=== PATIENT | female | born 1955 | race Caucasian/White ===

== ENCOUNTER 2025-05-09 06:34 | Inpatient (IN) | payer MEDICARE, MEDICAID, SELFPAY ==
[2025-05-09] VITALS (10 sets, daily range): BP systolic 130–163; BP diastolic 80–126; PULSE 87–124; RESP 18–24; TEMP 36.1–37.4; O2SAT 89–93; BMI 37.1
--- NOTE | 2025-05-09 06:42 | PD.EDABDPN ---
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 Described as aching in sensation located most to the left side, rating as moderate. Accompanied by nausea and one episode of vomiting this morning, no diarrhea. Additionally reports some dysuria beginning several days ago. Patient reports eating cottage cheese for dinner last night and feels that may be the cause of her symptoms. Denies contact with residents experiencing similar GI symptoms. Denies fevers, chills, chest pain, cough, shortness of breath. Related Data Home Medications ?Medication ?Instructions ?Recorded ?Confirmed ascorbic acid (vitamin C) 500 mg 500 mg PO QDAY 01/13/23 01/13/23 tablet atorvastatin 20 mg tablet 20 mg PO QDAY 01/13/23 01/13/23 bisacodyl 10 mg rectal suppository 10 mg DC QDAY PRN 01/13/23 01/13/23 (Dulcolax (bisacodyl)) diphenhydramine HCl 25 mg capsule 25 mg PO QHS PRN 01/13/23 01/13/23 (Benadryl) escitalopram oxalate 10 mg tablet 10 mg PO QDAY 01/13/23 01/13/23 (Lexapro) magnesium hydroxide 2,400 mg/10 mL 10 ml PO QHS PRN 01/13/23 01/13/23 oral suspension (Milk Of Magnesia Concentrated) sodium phosphates 19 gram-7 118 ml DC QDAY PRN 01/13/23 01/13/23 gram/118 mL enema (Fleet Enema) Previous Rx's ?Medication ?Instructions ?Recorded atorvastatin 20 mg tablet 20 mg PO QPM #30 tabs 04/06/22 escitalopram oxalate 10 mg tablet 10 mg PO HS #30 tabs 12/21/22 Allergies Allergy/AdvReac Type Severity Reaction Status Date / Time No Known Allergies Allergy Verified 05/09/25 06:36 Review of Systems Review of Systems Systems Reviewed: All systems reviewed, normal except as documented Past Medical History Past Medical History NEUROLOGIC: Positive Neurological Disorders, Cerebrovascular Accident and Seizures CARDIAC: Positive Aneurysm and Hypertension REPRODUCTIVE: Positive Breast Cancer OTHER HISTORY: Positive Breast Cancer Family History FAMILY HISTORY: Positive Family Gastrointestinal Problems Surgical History SURGICAL: Positive Hysterectomy Social History SMOKING STATUS: Former smoker SUBSTANCE USE: methamphetamine ED Exam General Limitations: Present no limitations General appearance: Present alert and in no apparent distress Head Head exam: Present atraumatic, normocephalic and normal inspection Eye Eye exam: Present normal appearance, PERRL and EOMI ENT ENT exam: Present normal exam, normal oropharynx and mucous membranes moist Neck Neck exam: Present normal inspection, full ROM and trachea midline Chest Chest inspection: Present normal inspection and symmetric chest wall rise Respiratory Respiratory exam: Present normal lung sounds bilaterally Cardiovascular Cardiovascular exam: Present tachycardia and normal heart sounds Abdominal Exam Abdominal exam: Present soft, distention (mild ) and normal bowel sounds; Absent guarding or rebound Extremities Exam Extremities exam: Present other (Right sided paralysis from previous CVA ) Back Exam Back exam: Present normal inspection and full ROM Neurological Exam Neurological exam: Present alert, oriented X3, CN II-XII intact and other Psychiatric Psychiatric exam: Present normal affect and normal mood Skin Skin exam: Present warm, dry, intact and normal color Other Other exam information: Patient with weakness at her right side of her body this is chronic Course Quality Measures Current suspected stage: sepsis Possible source: genitourinary Blood cultures ordered: yes Antibiotic ordered: Yes Pertinent labs: 05/09/25 05/09/25 07:10 10:36 Lactic Acid 2.1 H mMol/L 1.9 mMol/L (0.4-2.0) (0.4-2.0) Procalcitonin 0.06 ng/ml (0.0-0.49) sepsis Orders Category Date Time Status Admit to Inpatient Status Routine Admission 05/09/25 12:25 Active Patient Condition Routine Admission 05/09/25 12:25 Ordered Bedside Blood Glucose NOW Care 05/09/25 06:51 Active Bedside Blood Glucose Q6HR Care 05/09/25 12:[address] Screening NOW Care 05/09/25 06:53 Active Heel Brusher Q4H START 00 Care 05/09/25 06:51 Active EKG (ED ONLY) *Do not use* NOW Care 05/09/25 06:44 Completed IV [Insert IV] NOW Care 05/09/25 06:42 Active In and Out Catheter X1 Care 05/09/25 08:43 Completed Insert IV NOW Care 05/09/25 06:51 Active Insert NG / OG tube NOW Care 05/09/25 11:14 Active NPO NOW Care 05/09/25 11:14 Active Notify provider NEEDED Care 05/09/25 12:25 Active Strict Intake and Output Routine Care 05/09/25 06:51 Ordered Diet NPO (NOW) Diet 05/09/25 11:[address] abdomen pelvis w con Stat Exams 05/09/25 06:53 Completed EKG (ED Only) Stat Exams 05/09/25 06:44 Ordered XR chest 1V SEPSIS PROTOCOL Stat Exams 05/09/25 06:51 Completed XR small bowel single contrast Stat Exams 05/09/25 11:15 Ordered Blood Culture (Lab) Stat Lab 05/09/25 07:10 Received CBC Stat Lab 05/09/25 07:10 Completed Comprehensive Metabolic Panel Stat Lab 05/09/25 07:10 Completed Lactate (Lactic Acid) Stat Lab 05/09/25 07:10 Completed Lactic Acid, 3 HR Stat Lab 05/09/25 10:36 Completed Lipase Stat Lab 05/09/25 07:10 Completed Partial Thromboplastin Time Stat Lab 05/09/25 07:10 Completed Procalcitonin Stat Lab 05/09/25 07:10 Completed Prothrombin Time with INR Stat Lab 05/09/25 07:10 Completed Troponin I Stat Lab 05/09/25 07:10 Completed Urinalysis Stat Lab 05/09/25 08:44 Completed Urine Culture Stat Lab 05/09/25 08:44 Received Acetaminophen Tab [Tylenol ES Tab] Med 05/09/25 06:53 Discontinued 500 mg PO X1 ONE Insulin Regular Med 05/09/25 12:25 Discontinued 10 unit IV X1 ONE Ringers Lactated 1000 ml [Lactated Ringers] 1,000 ml Med 05/09/25 09:16 Discontinued IV 999 mls/hr Ringers Lactated 1000 ml [Lactated Ringers] 500 ml Med 05/09/25 09:00 Discontinued IV 500 mls/hr Ringers Lactated 1000 ml [Lactated Ringers] 500 ml Med 05/09/25 09:16 Discontinued IV 500 mls/hr Ringers Lactated 500 ml [Lactated Ringers] 500 ml Med 05/09/25 09:14 Discontinued IV 1,000 mls/hr Ringers Lactated 500 ml [Lactated Ringers] 500 ml Med 05/09/25 06:51 Discontinued IV 500 mls/hr cefTRIAXone/D5w 1gm IV premix [Rocephin/D5w 1gm IV Med 05/09/25 06:52 Discontinued premix] 1 gm in 50 ml IV NOW Code Status Routine Oth 05/09/25 12:25 Ordered Vital Signs Vital signs: Vital Signs Temperature 98.6 F 05/09/25 06:40 Pulse Rate 119 H 05/09/25 06:40 Respiratory Rate 24 H 05/09/25 06:40 Blood Pressure 157/126 H 05/09/25 06:40 Pulse Oximetry (%) 89 L 05/09/25 06:40 Oxygen Delivery Method Room Air 05/09/25 06:40 Abdominal Pain MDM MDM Narrative MDM Narrative:: Kary Wiggins am scribing for and in the presence of Dr. Gaspar. Patient is a 69-year-old female with medical history notable for stroke with residual right-sided deficits, gastric cancer status post resection many years ago that send emergency room with concerns for acute onset nausea vomiting and abdominal pain. Vital signs and exam as listed. Ordered labs, CT. Patient presented tachycardia. Ordered sepsis order set. Labs without acute hematologic or significant electrolyte abnormality patient is hyperglycemic however not in DKA. He has a urinary tract infection. Following fluid resuscitation lactic acid resolved to normal. CT scan shows findings concerning for bowel obstruction. Ordered NG tube, Place patient NPO. Discussed case with surgeon who recommends admission Gastrografin study and admission for observation. Discussed case with hospitalist, for admission. 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, DVT in right leg, hypertension, hyperlipidemia, stomach cancer s/p resection How is presenting disease/condition affected by chronic disease/condition?: exacerbated by Evaluation data The following diagnostics were reviewed and interpreted by me:: lab results, radiology exam(s) and EKG tracing(s) (Sinus tachycardia, rate 120, normal intervals, motion artifact, nonspecific T-wave changes, no cardiac alert ) Lab and/or radiology exams considered but not ordered:: None Interpretation Summary: Ordering Physician: Saumya Gaspar MD Date of Service: 05/09/25 Procedure(s): XR chest 1V SEPSIS PROTOCOL Accession Number(s): [id number] cc: Víctor Reddy MD; Saumya Gaspar MD~ Examination: AP chest single view Technique one AP portable upright chest single view Date and time: May 09, 2025 0708 hours INDICATIONS: Fever shortness of breath sepsis today FINDINGS: Normal heart size. No pneumonia or pulmonary edema. The osseous structures are intact. IMPRESSION: No active disease Dictated By: Víctro Reddy MD Signed By: <Electronically signed by Víctor Reddy MD in OV> 05/09/25 0752 Ordering Physician: Saumya Gaspar MD Date of Service: 05/09/25 Procedure(s): CT abdomen pelvis w con Accession Number(s): [id number] cc: Víctor Reddy MD; NO PRIMARY/FAMILY,PHYSICIAN; Saumya Gaspar MD~ Examination: CT abdomen with intravenous contrast CT pelvis with intravenous contrast 2-D coronal reconstructions 2-D sagittal reconstructions Date and time of exam:May 09, 2025 1005 hours Comparison December 18, 2022 INDICATIONS: Generalized abdominal pain nausea vomiting today. CTDI: vol (mGy) 15.1 DLP: (mGycm) 953 Technique: Multiple axial sections of the abdomen and pelvis have been obtained. 64 slice high-resolution scanner used. 3 mm axial sections have been obtained, post intravenous injection 60 cc [id number] 2-D sagittal, coronal reconstructions obtained. Low dose protocols were performed. One or more of the following dose reduction techniques were used; automated exposure control, adjustment of the mA and/or KV according to patient size, use of iterative reconstruction technique. Findings: 12 mm liver cyst No gallstones Spleen not enlarged No pancreatic or adrenal mass No hydronephrosis Aorta normal size Multiple fluid distended small bowel loops in the mid and lower abdomen Tiny fat-containing umbilical hernia No diverticulitis No pericecal inflammatory change Contracted urinary bladder with wall thickening and inflammatory change Absent uterus No pelvic mass Severe osteopenia IMPRESSION: Small bowel obstruction pattern, consider Gastrografin small bowel series follow-up Dictated By: Víctor Reddy MD Signed By: <Electronically signed by Víctor Reddy MD in OV> 05/09/25 1046 Medications / Prescriptions Medications or Prescriptions considered but not ordered:: None Medication administrations:: Medication Administration History Discontinued Medications Acetaminophen (Acetaminophen 500 Mg Tablet) 500 mg PO X1 ONE Stop: 05/09/25 06:54 Last Admin: 05/09/25 08:12 Dose: 500 mg Documented By: Ceftriaxone Sodium/Dextrose (Rocephin/D5w 1gm Iv Premix) 1 gm in 50 mls @ 100 mls/hr IV NOW ONE Stop: 05/09/25 07:21 Last Infusion: 05/09/25 08:50 Dose: Infused Documented By: Admin: 05/09/25 08:19 Dose: 100 mls/hr Documented By: Lactated Ringer's (Lactated Ringers) 500 mls @ 500 mls/hr IV .Q1H ONE Stop: 05/09/25 07:50 Last Admin: 05/09/25 08:52 Dose: Not Given Documented By: Non-Admin Reason: Duplicate Medication on eMAR Lactated Ringer's (Lactated Ringers) 500 mls @ 500 mls/hr IV .Q1H ONE Stop: 05/09/25 09:59 Last Infusion: 05/09/25 09:45 Dose: Infused Documented By: Admin: 05/09/25 08:52 Dose: 500 mls/hr Documented By: Lactated Ringer's (Lactated Ringers) 500 mls @ 1,000 mls/hr IV .Q30M ONE Stop: 05/09/25 09:43 Last Admin: 05/09/25 09:30 Dose: Not Given Documented By: Non-Admin Reason: Cancelled by Provider Lactated Ringer's (Lactated Ringers) 1,000 mls @ 999 mls/hr IV .Q1H1M ONE Stop: 05/09/25 10:16 Last Admin: 05/09/25 11:39 Dose: 999 mls/hr Documented By: EF Lactated Ringer's (Lactated Ringers) 500 mls @ 500 mls/hr IV .Q1H ONE Stop: 05/09/25 10:15 Last Infusion: 05/09/25 10:32 Dose: Infused Documented By: Admin: 05/09/25 09:32 Dose: 500 mls/hr Documented By: EF Insulin Human Regular (Insulin Hum Regular 1 Unit/0.01 Ml (Per Unit)) 10 unit IV X1 ONE Stop: 05/09/25 12:26 See above Consultations Consultation(s) initiated? (list below): Yes Consultation #1 (Physician, Specialty, Details): I spoke with surgeon Dr. Aleman. Discussed patients PMHx, HPI, ED course, exam findings, labs, and radiology results. Recommends admission for obs and a small bowel series. He agree to consult. Time: 11:15 Consultation #2 (Physician, Specialty, Details): I spoke with resident Dr. Umanzor working with hospitalist Dr. Pinedo. Discussed patients PMHx, HPI, ED course, exam findings, labs, and radiology results. The hospitalist agree to accept the patient for admission. Time: 11:17 Diagnosis Differential diagnosis abdominal pain: abdominal pain, constipation, diverticulitis and gastroenteritis Most likely diagnosis given after review of the tests above:: UTI Dehydration Hyperglycemia SBO Urosepsis Admission Indicated Admission indicated?: indicated Admission Request Was there a request for admission?: Yes Admission Attestation Admission request attestation: Discussed case with [] from Hospitalist service regarding admission. Discussed patients ED course, exam findings, labs, and radiology results. The Hospitalist [agrees,declines] to accept the patient for admission. Disposition Plan Disposition Plan: Admit Critical Care Time Critical Care Time Critical Care Time: Yes Total Critical Care Time (min.): 90 Attestation: The high probability of sudden, clinically significant deterioration in the patient's condition required the highest level of my preparedness to intervene urgently. The services I provided to this patient were to treat and/or prevent clinically significant deterioration. Services included the following: chart data review, reviewing nursing notes and/or old charts, documentation time, vocational rehabilitation consultant collaboration regarding findings and treatment options, medication orders and management, direct patient care, vital sign assessments and ordering, interpreting and reviewing diagnostic studies and lab tests. Aggregate critical care time includes only time during which I was engaged in work directly related to the patient's care, as described above, whether at bedside or elsewhere in the Emergency Department. It did not include time spent performing other reported procedures or the services of residents, students, nurses or physician assistants. Discharge Plan Plan Patient Disposition: Admit Acute Care w/in Hospital Problem List Clinical Impression: Acute UTI, SBO (small bowel obstruction), Sepsis secondary to UTI, Dehydration, Hyperglycemia
--- NOTE | 2025-05-09 06:51 | XR_ITS ---
Examination: AP chest single view Technique one AP portable upright chest single view Date and time: May 09, 2025 0708 hours INDICATIONS: Fever shortness of breath sepsis today FINDINGS: Normal heart size. No pneumonia or pulmonary edema. The osseous structures are intact. IMPRESSION: No active disease
--- NOTE | 2025-05-09 06:53 | XR_ITS ---
Examination: CT abdomen with intravenous contrast CT pelvis with intravenous contrast 2-D coronal reconstructions 2-D sagittal reconstructions Date and time of exam:May 09, 2025 1005 hours Comparison December 18, 2022 INDICATIONS: Generalized abdominal pain nausea vomiting today. CTDI: vol (mGy) 15.1 DLP: (mGycm) 953 Technique: Multiple axial sections of the abdomen and pelvis have been obtained. 64 slice high-resolution scanner used. 3 mm axial sections have been obtained, post intravenous injection 60 cc Isovue-370 2-D sagittal, coronal reconstructions obtained. Low dose protocols were performed. One or more of the following dose reduction techniques were used; automated exposure control, adjustment of the mA and/or KV according to patient size, use of iterative reconstruction technique. Findings: 12 mm liver cyst No gallstones Spleen not enlarged No pancreatic or adrenal mass No hydronephrosis Aorta normal size Multiple fluid distended small bowel loops in the mid and lower abdomen Tiny fat-containing umbilical hernia No diverticulitis No pericecal inflammatory change Contracted urinary bladder with wall thickening and inflammatory change Absent uterus No pelvic mass Severe osteopenia IMPRESSION: Small bowel obstruction pattern, consider Gastrografin small bowel series follow-up
[2025-05-09 07:32] LABS: Lactate (Lactic Acid) 2.1 mMol/L (0.4-2.0)
[2025-05-09 07:33] LABS: Basophils # (Auto) 0.1 Thou/mm3 (0.0-0.2); Basophils % (Auto) 1 % (0-2.5); Eosinophils # (Auto) 0.0 Thou/mm3 (0.0-0.5); Eosinophils % (Auto) 0 % (0-10); Hematocrit 47.0 % (36.0-46.0); Hemoglobin 16.4 g/dL (12.0-16.0); Immature Granulocytes Auto 0.02 Thou/mm3 (0.00-0.00); Lymphocytes # (Auto) 2.1 Thou/mm3 (1.0-4.8); Lymphocytes % (Auto) 22 % (10-50); Mean Corpuscular HGB Conc 34.9 g/dl (31.0-37.0); Mean Corpuscular Hemoglobin 29.8 pg (25.0-35.0); Mean Corpuscular Volume 86 fL (80-100); Monocytes # (Auto) 0.5 Thou/mm3 (0.0-0.8); Monocytes % (Auto) 5 % (0-12); Neutrophils # (Auto) 6.9 Thou/mm3 (1.8-7.7); Neutrophils % (Auto) 72 % (37-80); Nucleated Red Blood Cell # 0.00 Thou/mm3 (0.00-0.00); Nucleated Red Blood Cell % 0 /100 WBC (0); Platelet Count 342 Thou/mm3 (140-440); RDW Standard Deviation 40.6 fL (36.4-46.3); Red Blood Count 5.50 Miln/mm3 (4.00-5.20); White Blood Count 9.6 Thou/mm3 (3.6-11.0)
[2025-05-09 08:02] LABS: Alanine Aminotransferase 31 U/L (10-49); Albumin, Serum 4.8 gm/dL (3.4-4.8); Albumin/Globulin Ratio 1.3 (1.2-2.2); Alkaline Phosphatase 107 U/L (46-116); Anion Gap 10 (7-16); Aspartate Amino Transferase 29 U/L (0-34); BUN/Creatinine Ratio 12 Ratio (12-20); Bilirubin,Total 0.4 mg/dL (0.3-1.2); Blood Urea Nitrogen 11 mg/dL (9-23); Calcium 10.7 mg/dL (8.3-10.6); Calcium (Corrected) 10.7 mg/dL (8.5-10.1); Carbon Dioxide 27.0 mMol/L (20.0-31.0); Chloride 95 mMol/L (98-107); Creatinine (Component) 0.9 mg/dL (0.6-1.3); Estimated Creatinine Clearance 72.0 mL/min (>60); Globulin 3.6 gm/dL (2.3-3.5); Lipase 31 U/L (12-53); Osmolality,Calculated 281 (275-295); Potassium 4.7 mMol/L (3.4-5.1); Procalcitonin 0.06 ng/ml (0.0-0.49); Sodium 132 mMol/L (136-145); Total Protein 8.4 gm/dL (5.7-8.2); Troponin I < 0.020 ng/mL (0.0-0.045); eGFR > 60 See Note
[2025-05-09 08:04] LABS: Glucose 430 mg/dL (74-106)
[2025-05-09] MEDS: ACETAMINOPHEN 500 MG TABLET PO (08:12)
[2025-05-09] MEDS: cefTRIAXone/D5w 1gm IV premix 1 GM/50 ML BAG IV (08:19)
[2025-05-09 08:25] LABS: INR 1.0 (0.9-1.3); Partial Thromboplastin Time 28.5 Seconds (22.0-36.0); Prothrombin Time 11.1 Seconds (9.0-12.2)
[2025-05-09 08:47] LABS: Collection Type, Urine Catheter
[2025-05-09] MEDS: RINGERS LACTATED 1000 ML 500 ML IV ×2 (08:52→09:32)
[2025-05-09 09:06] LABS: Bacteria,Urine 2+; Bilirubin,Urine Negative (Negative); Blood,Urine 3+ (Negative); Clarity,Urine Clear (Clear/Hazy); Color,Urine Lt-Yellow (Lt Yel-Yel); Glucose, Urine 4+ (Negative); Ketones,Urine 1+ (Negative); Leukocyte Esterase,Urine Negative (Negative); Nitrite,Urine Positive (Negative); PH,Urine 5.5 (5.0-7.0); Protein,Urine 1+ (Neg - Trace); RBC,Urine 14 /hpf (0-3); Specific Gravity,Urine 1.042 (1.001-1.035); Squamous Epithelial Cell,Urine 1 /hpf (0-5); Urobilinogen,Urine Negative mg/dL (0.0-1.0); WBC,Urine 27 /hpf (0-5)
[2025-05-09 10:28] LABS: Reflex Lactate? Y
[2025-05-09 10:48] LABS: Lactic Acid, 3 HR 1.9 mMol/L (0.4-2.0)
--- NOTE | 2025-05-09 11:15 | XR_ITS ---
Examination: Small bowel series AP abdomen 4 views Date and time: May 09, 2025 1132 hours INDICATIONS: Generalized abdominal pain nausea vomiting today, small bowel obstruction pattern on CT abdomen pelvis May 09, 2025 1005 hours TECHNIQUE AND FINDINGS: Patient ingested 120 cc Gastrografin, immediate 30 minute 1 and Cylinder [employer] abdomen films obtained 4 views Air distended small bowel loops Contrast in dilated small bowel loops on the 30 minute and 1 hours films IMPRESSION: Dilated small bowel loops, recommend follow-up films 3:00 PM 5:00 PM 7:00 PM
[2025-05-09] MEDS: RINGERS LACTATED 1000 ML 1,000 ML 999 ML IV (11:39)
--- NOTE | 2025-05-09 13:06 | PC.NURSE ---
PER DR. FULTON, HOLD ON PLACING THE NG TUBE ON PT FOR NOW; PT NO LONGER VOMITING; PT WAS ABLE TO SWALLOW THE CONTRAST FOR THE SMALL BOWEL SERIES. HOLD NG TUBE PLACEMENT FOR NOW.
[2025-05-09] MEDS: INSULIN HUM REGULAR 1 UNIT/0.01 ML (PER UNIT) 5 UNIT IV (13:17)
--- NOTE | 2025-05-09 13:53 | ESHP_ITS ---
<Statement entered by Kiki Umanzor MD - 05/10/25 07:03> I have reviewed the note and agree with the resident's assessment & plan with exceptions as below. I have personally reviewed labs, imaging, home meds/prior records, examined the patient, formulated and discussed management plan with the IM team. Pt examined at bedside today. Pt comes for evaluation of small bowel obstruction after episode of vomiting, abdominal pain, not having a bowel movement in some time and CT imaging revealed small bowel obstruction pattern. Will continue with NG tube, n.p.o., antiemetics, analgesics, and small bowel series. Patient does have history of gastric cancer (approximately 30 years ago) which required open abdominal surgery, seen by visible scar on physical exam. General surgery consulted, appreciate recommendations. Resume home medicines upon medication reconciliation. Patient does endorse no symptoms of UTI, however patient is not the best historian and her urinalysis shows signs of infection, will treat with IV Rocephin, follow up urine culture. 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 She states that she had sudden, acute onset of left lower quadrant pain that she described as a waxing and waning, 10/10, sharp, nonradiating pain. She denies alleviating and provoking factors. She confirms associated symptoms of vomiting, and endorses multiple episodes last night and this morning. She states these symptoms began after she ate dinner, and she has not attempted to eat since then. She states that her last bowel movement was yesterday morning, and she has not passed gas while she has been in the ED. She denies fevers, chills, chest pain, hematemesis, and dysuria. She confirms sob. ED Course: Vitals on admission: T: 98.6, HR: 124, RR: 24, BP: 157/126, SPO2 89 on RA. Physical exam notable for mild abdominal distension and normal bowel sounds. Labs were notable for Hgb 16.4, RBC 5.5, Na+ 132, Cl 95, Glu 430, Lactic acid 2.1, Calcium 10.7, Total protein 8.4, globulin 3.6, UA: + blood, + nitrites, 14 RBC, 27 WBC, 2+ bacteria Imaging: CXR: No pneumonia or pulmonary edema, normal heart size Abdomen/Pelvis CT w con: 12 mm liver cyst, tiny fat-containing umbilical hernia, contracted urinary bladder with wall thickening and inflammatory change, severe osteopenia, and small bowel obstruction pattern (multiple fluid distended small bowel loops in mid and lower abdomen) Small bowel series: Pending Medications received: Acetaminophen 500mg pox1, Ceftriaxone 1gm IV x1, LR 500mls IV x2, LR 1L IV x1, regular insulin 5U IV x1, NS 75mls/hr IV. 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 Stopped smoking 21 years ago. Confirms hx of smoking methamphetamine, last use was 3 years ago. She denies alcohol use. Denies history of STIs, injection drug use. Review of Systems Review of Systems Systems Reviewed: All systems reviewed, normal except as documented Past Medical History Past Medical History NEUROLOGIC: Positive Neurological Disorders (Cerebral aneurysm s/p endovascular coiling) and Cerebrovascular Accident (with residual right sided deficits) CARDIAC: Positive Hypercholesterolemia, Deep Vein Thrombosis (R leg) and Hypertension RESPIRATORY: Positive Smoking GASTROINTESTINAL: Positive Gastrointestinal Disorders (Gastric cancer s/p resection 20 years ago) Surgical History SURGICAL: Positive Hysterectomy OTHER SURGICAL HX: Gastric cancer resection, aneurysm repair Social History SMOKING STATUS: Former smoker (multiple packs a day for 34 years, quit 21 years ago) SUBSTANCE USE: former substance user (hx of methamphetamine use, last use 3 years ago) ALCOHOL: Never HOUSING: [facility] Exam Vital Signs Temp Pulse Resp BP Pulse Ox O2 Del Method O2 Flow Rate 99.0 F 101 H 22 H 130/83 93 L Nasal Cannula 4 05/09/25 12:27 05/09/25 12:27 05/09/25 12:27 05/09/25 12:27 05/09/25 12:27 05/09/25 12:27 05/09/25 12:27 Narrative Exam Physical exam limited due to lack of patient effort General: A&O x4, NAD, obese HEENT: Normocephalic, atraumatic, PERRL, Cardio: RRR, S1, S2, no murmurs rubs or gallops Pulm: Lungs clear to auscultation bilaterally with no adventitious lung sounds Abdominal: Bowel sounds present in all quadrants, abdomen is mildly distendded with tenderness noted in the suprapubic region. No rigidity or guarding MSK: LUE and LLE strength 5/5. Patient is unable to move the right side secondary to previous CVA. Skin: Warm, dry, intact with normal color Neuro: CN exam limited due to lack of patient cooperation. Strength 5/5 left side. Results: Labs 05/10/25 04:56 05/10/25 04:56 Labs: Short CBC 05/09/25 Range/Units 07:10 WBC 9.6 (3.6-11.0) Thou/mm3 Hgb 16.4 H (12.0-16.0) g/dL Hct 47.0 H (36.0-46.0) % Plt Count 342 (140-440) Thou/mm3 BMP 05/09/25 07:10 Sodium 132 L Potassium 4.7 Chloride 95 L Carbon Dioxide 27.0 BUN 11 Creatinine 0.9 Glucose 430 H* Calcium 10.7 H Cardiac Enzymes 05/09/25 Range/Units 07:10 Troponin I < 0.020 (0.0-0.045) ng/mL Liver Function 05/09/25 Range/Units 07:10 Total Bilirubin 0.4 (0.3-1.2) mg/dL AST 29 (0-34) U/L ALT 31 (10-49) U/L Alkaline Phosphatase 107 (46-116) U/L Albumin 4.8 (3.4-4.8) gm/dL Urine 05/09/25 Range/Units 08:44 Urine Color Lt-Yellow (Lt Yel-Yel) Urine Clarity Clear (Clear/Hazy) Urine pH 5.5 (5.0-7.0) Ur Specific [place] 1.042 H (1.001-1.035) Urine Protein 1+ A (Neg - Trace) Urine Glucose (UA) 4+ A (Negative) Quality Measures Quality Measures sepsis Current suspected stage: ruled out (no severe end organ dysfunction) Possible source: genitourinary Blood cultures ordered: yes Antibiotic ordered: Yes Advance care planning discussed with:: patient Medications Home Medications and Allergies Home Medications ?Medication ?Instructions ?Recorded ?Confirmed ?Type ascorbic acid (vitamin C) 500 mg 500 mg PO QDAY 01/13/23 History tablet atorvastatin 20 mg tablet 20 mg PO QDAY 01/13/2301/13 History bisacodyl 10 mg rectal suppository 10 mg PA QDAY PRN 0 01/13/23 01/13/23 History (Dulcolax (bisacodyl)) diphenhydramine HCl 25 mg capsule 25 mg PO QHS PRN 01/13/23 History (Benadryl) escitalopram oxalate 10 mg tablet 10 mg PO QDAY 01/13/23 History (Lexapro) magnesium hydroxide 2,400 mg/10 mL 10 ml PO QHS PRN 01/13/23 History oral suspension (Milk Of Magnesia Concentrated) sodium phosphates 19 gram-7 118 ml PA QDAY PRN 3 01/13/23 History gram/118 mL enema (Fleet Enema) Allergies Allergy/AdvReac Type Severity Reaction Status Date / Time No Known Allergies Allergy Verified 05/09/25 06:36 Visit Medications Ceftriaxone Sodium/Dextrose (Rocephin/D5w 1gm Iv Premix) 1 gm in 50 mls @ 100 mls/hr IV QDAY ZACHERY Stop: 05/17/25 08:59 Insulin Glargine (Insulin Glargine (Lantus) 5 Unit/0.05 Ml (Per 5 Units)) 10 unit SC ZACHERY Stop: 06/08/25 20:59 Discontinued Medications Acetaminophen (Acetaminophen 500 Mg Tablet) 500 mg PO X1 ONE Stop: 05/09/25 06:54 Last Admin: 05/09/25 08:12 Dose: 500 mg Benzocaine (Benzocaine 20% (Hurricaine) [place] 1 Dose) 0 dose TOP X1 ONE Stop: 05/09/25 12:58 Last Admin: 05/09/25 13:08 Dose: Not Given Ceftriaxone Sodium/Dextrose (Rocephin/D5w 1gm Iv Premix) 1 gm in 50 mls @ 100 mls/hr IV NOW ONE Stop: 05/09/25 07:21 Last Infusion: 05/09/25 08:50 Dose: Infused Lactated Ringer's (Lactated Ringers) 500 mls @ 500 mls/hr IV .Q1H ONE Stop: 05/09/25 07:50 Last Admin: 05/09/25 08:52 Dose: Not Given Lactated Ringer's (Lactated Ringers) 500 mls @ 500 mls/hr IV .Q1H ONE Stop: 05/09/25 09:59 Last Infusion: 05/09/25 09:45 Dose: Infused Lactated Ringer's (Lactated Ringers) 500 mls @ 1,000 mls/hr IV .Q30M ONE Stop: 05/09/25 09:43 Last Admin: 05/09/25 09:30 Dose: Not Given Lactated Ringer's (Lactated Ringers) 1,000 mls @ 999 mls/hr IV .Q1H1M ONE Stop: 05/09/25 10:16 Last Infusion: 05/09/25 13:02 Dose: Infused Lactated Ringer's (Lactated Ringers) 500 mls @ 500 mls/hr IV .Q1H ONE Stop: 05/09/25 10:15 Last Infusion: 05/09/25 10:32 Dose: Infused Insulin Human Regular (Insulin Hum Regular 1 Unit/0.01 Ml (Per Unit)) 10 unit IV X1 ONE Stop: 05/09/25 12:26 Last Admin: 05/09/25 13:16 Dose: Not Given Insulin Human Regular (Insulin Hum Regular 1 Unit/0.01 Ml (Per Unit)) 5 unit IV X1 ONE Stop: 05/09/25 13:17 Last Admin: 05/09/25 13:17 Dose: 5 unit Assessment & Plan Plan Assessment and Plan A 69 yo female with a pmh of 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 Patient was found to have lactic acidosis, mild hyponatremia, hyperglycemia, a UTI and imaging indicative of small bowel obstruction pattern. #SBO intermittent LLQ pain and 3-4 episodes of emesis that began last night (05/08). Last bowel movement 05/08 in the AM. Physical exam:mildly distended abdomen with suprapubic TTP. Labs notable for Calcium of 10.7 CT Abd/Pelvis: small bowel obstruction pattern (multiple fluid distended small bowel loops in mid and lower abdomen) Plan: -General surgery consulted, appreciate recs -NPO -Small Bowel Series -NS 75 mls/hr #?UTI Patient is afebrile, tachycardic, and tachypneic on admission Denies dysuria, but has prominent suprapubic tenderness on physical exam WBC wnl UA: 3+ blood, positive nitrites, 14 RBC, 27 WBC, 2+ bacteria Received Ceftriaxone 1gm IV x1, acetaminophen 500mg po x1, IVF Plan: -Urine cultures pending -blood cultures pending -Ceftriaxone 1gm IV QD #Lactic acidosis (resolved) Lactic acid 2.1 on admission, 1.9 (wnl) following fluid administration Likely Type A Plan: -Maintenance fluids #Hyperglycemia No pmh of T2DM, prior serum glucose ranges from 102-139 Serum glucose is 430 on admit, Fingerstick fasting glucose is 453 this AM Plan: -SSI -HgA1c ordered #Hypertension Patient has a history of hypertension BP has been in the 130-160s systolic Patient does not know her home medications Plan: -Med rec pending -Resume home bp medications once we confirm them #Hyperlipidemia Patient has a history of hld Plan: -Med rec pending -Resume home meds once confirmed #Hx DVTs on Xarelto Patient has a history of DVTs Plan: -Med rec pending Health Maintenance: Disposition: Med Tele DVT Prophylaxis: SCDs GI Prophylaxis: None Diet: NPO CODE STATUS: Full Code Case and Plan discussed with my attending physician, Dr. Pinedo, and my senior resident, Dr. Erna Cali, OMS-IV Attending Provider Attestation/Addendum After examination of the patient and review of the clinical data I feel that this patient needs admission to the hospital for further treatment/evaluation. I have discussed and was present for the essential components of the history, physical examination, diagnosis, and treatment plan with the resident. I agree with the patient's care as documented by the resident and amended herein by me. Shalom Pinedo DO. Although this document has been carefully reviewed, there may still be some phonetic and other typographical errors. These errors are purely grammatical due to imperfections in the software program and should not be construed in any way to compromise the substance of the patient's medical care during this visit. Patient seen and evaluated in the ED. Patient is a 69-year-old female with a significant past medical history of DVT, hyperlipidemia, hypertension, CVA with right hemiplegia, stomach cancer, cerebral aneurysms, meth abuse history and prior SBO, presented to the ED for abdominal pain, with associated nausea and vomiting which began approximately 1 day prior to admission. Patient subsequently admitted for small bowel obstruction, urinary tract infection and hyperglycemia. In the ED, BP 163/87 mmHg, patient was tachycardic with a pulse 111, patient on 4 L NC, with an SpO2 93%, patient afebrile upon arrival. Significant labs include a hemoglobin of 16, normal anion gap, blood glucose of 430, calcium 10.7, lactic acid 1.9. Chest x-ray was unremarkable and CT abdomen and pelvis demonstrated small bowel obstruction. Patient subsequently admitted to med/tele, general surgery was consulted in the ED, a small bowel series was ordered by us, the patient was started on ceftriaxone for urinary tract infection, blood and urine cultures are pending. Home meds will be reconciled and ordered appropriately. The patient did give 10 units of regular insulin IV x 1, we also placed Lantus 10 units nightly. Will continue to monitor closely while she is here. Appreciate specialist recommendations
--- NOTE | 2025-05-09 15:00 | XR_ITS ---
Examination: Abdomen AP single view Technique: AP portable supine abdomen, single view Exam date and time: May 09, 2025 1501 hours INDICATIONS: Abdominal distention this week, small bowel obstruction pattern on CT abdomen pelvis May 09, 2025, 1005 hours, 3 hour delayed film post small bowel series FINDINGS: Contrast in distended small bowel loops IMPRESSION: Contrast in distended small bowel loops, additional follow-up films will be obtained
[2025-05-09] MEDS: SODIUM CHLORIDE 0.9% 1000 ML 1,000 ML 75 ML IV (15:33)
--- NOTE | 2025-05-09 17:00 | XR_ITS ---
Examination: Abdomen AP single view Technique: AP portable supine abdomen, single view Exam date and time: May 09, 2025, 1656 hours INDICATIONS: Small bowel obstruction pattern on CT abdomen and pelvis May 09, 2025, 1005 hours, abdominal pain and distention this week, 5 hour delayed film post small bowel series FINDINGS: Contrast in distended small bowel loops, however, abundant contrast in the colon IMPRESSION: Negative for complete small bowel obstruction No further films are needed
--- NOTE | 2025-05-09 19:00 | PC.NURSE ---
Report received, pt had abd series ok for clear liquid diet.
[2025-05-09] MEDS: INSULIN GLARGINE (Lantus) 5 UNIT/0.05 ML (PER 5 UNITS) 10 UNIT SC (21:00)
[2025-05-10] VITALS: BP 138/74; PULSE 90; PULSE 92; RESP 17; TEMP 36.1; O2SAT 96
--- NOTE | 2025-05-10 02:31 | PC.NURSE ---
Contacted [facility] for med rec, transferred over to station that pt resides, no answer, called back no answer, unable to complete med rec.
[2025-05-10 04:00] VITALS: BP 126/71; PULSE 87; PULSE 88; RESP 18; TEMP 36.1; O2SAT 96
[2025-05-10] MEDS: SODIUM CHLORIDE 0.9% 1000 ML 1,000 ML 75 ML IV (05:23)
[2025-05-10 06:00] VITALS: BMI 37.1
[2025-05-10 06:35] LABS: Basophils # (Auto) 0.1 Thou/mm3 (0.0-0.2); Basophils % (Auto) 1 % (0-2.5); Eosinophils # (Auto) 0.2 Thou/mm3 (0.0-0.5); Eosinophils % (Auto) 3 % (0-10); Glucose Estimated Average 346 mg/dL (80-131); Hematocrit 40.6 % (36.0-46.0); Hemoglobin 13.3 g/dL (12.0-16.0); Hemoglobin A1C 13.7 % Hgb (4.8-6.0); Immature Granulocytes Auto 0.01 Thou/mm3 (0.00-0.00); Lymphocytes # (Auto) 1.7 Thou/mm3 (1.0-4.8); Lymphocytes % (Auto) 32 % (10-50); Mean Corpuscular HGB Conc 32.8 g/dl (31.0-37.0); Mean Corpuscular Hemoglobin 30.0 pg (25.0-35.0); Mean Corpuscular Volume 91 fL (80-100); Monocytes # (Auto) 0.5 Thou/mm3 (0.0-0.8); Monocytes % (Auto) 9 % (0-12); Neutrophils # (Auto) 3.1 Thou/mm3 (1.8-7.7); Neutrophils % (Auto) 56 % (37-80); Nucleated Red Blood Cell # 0.00 Thou/mm3 (0.00-0.00); Nucleated Red Blood Cell % 0 /100 WBC (0); Platelet Count 265 Thou/mm3 (140-440); RDW Standard Deviation 45.0 fL (36.4-46.3); Red Blood Count 4.44 Miln/mm3 (4.00-5.20); White Blood Count 5.5 Thou/mm3 (3.6-11.0)
[2025-05-10 06:55] LABS: Alanine Aminotransferase 17 U/L (10-49); Albumin, Serum 3.4 gm/dL (3.4-4.8); Albumin/Globulin Ratio 1.3 (1.2-2.2); Alkaline Phosphatase 72 U/L (46-116); Anion Gap 9 (7-16); Aspartate Amino Transferase 11 U/L (0-34); BUN/Creatinine Ratio 13 Ratio (12-20); Bilirubin,Total 0.3 mg/dL (0.3-1.2); Blood Urea Nitrogen 9 mg/dL (9-23); Calcium 7.7 mg/dL (8.3-10.6); Calcium (Corrected) 8.2 mg/dL (8.5-10.1); Carbon Dioxide 28.0 mMol/L (20.0-31.0); Cardiac Risk Estimate 9.0 RATIO (3.7-5.6); Chloride 104 mMol/L (98-107); Cholesterol 288 mg/dL (132-200); Creatinine (Component) 0.7 mg/dL (0.6-1.3); Estimated Creatinine Clearance 92.6 mL/min (>60); Globulin 2.7 gm/dL (2.3-3.5); Glucose 313 mg/dL (74-106); HDL Cholesterol 32 mg/dL (40-60); LDL Cholesterol,Calculated 178 mg/dL (0-130); Magnesium 1.2 mg/dL (1.6-2.6); Osmolality,Calculated 291 (275-295); Phosphorous 2.7 mg/dL (2.4-5.1); Potassium 3.5 mMol/L (3.4-5.1); Sodium 141 mMol/L (136-145); Thyroid Stimulating Hormone 3.46 uIU/mL (0.55-4.78); Total Protein 6.1 gm/dL (5.7-8.2); Triglycerides 391 mg/dL (30-150); eGFR > 60 See Note
[2025-05-10 08:00] VITALS: BP 116/70; PULSE 77; PULSE 81; RESP 18; TEMP 36.1; O2SAT 96
[2025-05-10] MEDS: INSULIN LISPRO (AdmeLOG) 1 UNIT/0.01 ML UNIT SC ×2 (10:01→11:36)
[2025-05-10] MEDS: cefTRIAXone/D5w 1gm IV premix 1 GM/50 ML BAG IV (10:02)
--- NOTE | 2025-05-10 11:11 | PC.SS ---
Patient is alert/oriented. Patient was able to verify demographics. Patient is a resident of [facility] and has been at facility for 3 years. Patient states she uses a wheelchair. Non ambulatory. PCP: Dr. Quezada. Alt medical decision maker: Olena, mynor. Patient will return to facility once medically cleared. Patient was admitted for SBO. Possible d/c 1-2 days transportation: [employer] alt medical decision maker: lOena Small,
[2025-05-10] MEDS: INSULIN LISPRO (AdmeLOG) 1 UNIT/0.01 ML UNIT 5 UNIT SC (11:36)
[2025-05-10 12:00] VITALS: BP 156/76; PULSE 78; RESP 18; TEMP 36.1; O2SAT 98
--- NOTE | 2025-05-10 15:14 | ESDS_ITS ---
<Statement entered by Kiki Umanzor MD - 05/10/25 18:01> I have reviewed the note and agree with the resident's assessment & plan with exceptions as below. I have personally reviewed labs, imaging, home meds/prior records, examined the patient, formulated and discussed management plan with the IM team. Patient examined bedside today. Patient SBO seems to have resolved upon small bowel series, will remove NG tube. Patient has not had any vomiting and minimal abdominal pain at this time. She is also been having bowel movements. Will advance patient's diet to see if patient will tolerate. Anticipate discharge within the next 24 to 48 hours. Will advance patient to peptic ulcer diet. Repeat hematology and chemistry in AM. Continue analgesia at this time. Kiki Umanzor, PGY-2 Internal Medicine Planned Discharge Date 05/10/25 DS: Providers Provider Date of admission: 05/09/25 12:29 Primary care physician: Physician No Primary/Family Admitting Provider: Nawaf Pinedo DO Attending Provider on Admission: Nawaf Pinedo DO Consults: 05/09/25 12:45 Consult to General Surgery Stat Comment: consulted by ED for SBO Consulting Provider: Luciana Pak Attending Provider on DC: Nawaf Pinedo DO Discharging Provider: Nawaf Pinedo DO Anticipated date of discharge: 05/10/25 DS: Diagnosis Problem List Completed Was Problem List Reviewed/Reconciled?: Yes Hospital Course Hospital Course Hospital course: A 69 yo female with a pmh of 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 Patient was found to have lactic acidosis, hyperglycemia, a UTI and imaging indicative of small bowel obstruction pattern. ED Course: Vitals on admission: T: 98.6, HR: 124, RR: 24, BP: 157/126, SPO2 89 on RA. Physical exam notable for mild abdominal distension and normal bowel sounds. Labs were notable for Hgb 16.4, RBC 5.5, Na+ 132, Cl 95, Glu 430, Lactic acid 2.1, Calcium 10.7, Total protein 8.4, globulin 3.6, UA: + blood, + nitrites, 14 RBC, 27 WBC, 2+ bacteria Imaging: CXR: No pneumonia or pulmonary edema, normal heart size Abdomen/Pelvis CT w con: 12 mm liver cyst, tiny fat-containing umbilical hernia, contracted urinary bladder with wall thickening and inflammatory change, severe osteopenia, and small bowel obstruction pattern (multiple fluid distended small bowel loops in mid and lower abdomen) Small bowel series was started, Medications received: Acetaminophen 500mg pox1, Ceftriaxone 1gm IV x1, LR 500mls IV x2, LR 1L IV x1, regular insulin 5U IV x1, NS 75mls/hr IV. Consults: General Surgery Hospital Course: During the hospital course, the patient was kept NPO, an NG tube was placed, antiemetics, analgesics, and a small bowel series were ordered. The small bowel series was negative for a complete SBO and promptly the ng tube was removed, and the patient was placed on a clear liquid diet. She was able to tolerate her dinner. She elected to not eat breakfast, but has progressed her diet with lunch, eating solid food. She also endorses multiple bowel movements since her admission. As for her UTI, the patient was started on Ceftriaxone 1gm QD and will continue Cephalexin 500mg BID for 5 more days outpatient. As for her lactic acidosis, it resolved in the ED following fluid administration. The patients hyperglycemia was managed with sliding scale bolus insulin and basal insulin, and her bedside fingerstick glucose has dropped from 430 on admission to 212 today. The patients chronic conditions of hypertension, hyperlipidemia, and DVTs on xarelto were monitored with vital checks, labs, however her medications were not resumed as the patient was npo, and her vitals have been stable. Lastly, the patient was educated on the importance of medication compliance upon discharge. Discharge Instructions: Follow-up with PCP within 1-2 weeks of discharge. * Recommended increased fluid intake daily, continue with bowel rest to maintain regular bowel movements. * Recommended follow-up with PCP regarding glycemic control. * Continue using INSULIN GLARGINE 20 units HS (NEW). * Continue on INSULIN sliding scale protocol (NEW). * Continue using METFORMIN 500 mg BID (NEW). * Continue using CEPHALEXIN 500 mg twice daily for 5 more days (NEW). * Continue taking medications as prescribed below. * Return to Emergency Room if symptoms persist, worsen, or new symptoms develop. Problem list: #Incomplete SBO #UTI #Lactic acidosis (resolved) #Hyperglycemia #T2DM #Hypertension #Hyperlipidemia #Hx DVTs on Xarelto Discharge summary discussed with my attending physician, Dr. Pinedo, and my senior resident, Dr. Erna Cali, [facility] [place] Time Spent with Patient Time attestation: Total time spent providing and/or coordinating discharge services: Time spent: Greater than 30 minutes Exam Vital Signs Temp Pulse Resp BP Pulse Ox O2 Del Method O2 Flow Rate 97.0 F 78 18 156/76 H 98 Room Air 4 05/10/25 12:00 05/10/25 12:00 05/10/25 12:00 05/10/25 12:00 05/10/25 12:00 05/10/25 12:00 05/09/25 15:37 Narrative Exam General: A&O x4, NAD, obese HEENT: Normocephalic, atraumatic, PERRL, Cardio: RRR, S1, S2, no murmurs rubs or gallops Pulm: Lungs clear to auscultation bilaterally with no adventitious lung sounds Abdominal: Bowel sounds present in all quadrants, abdomen is soft, nontender with no rigidity or guarding MSK: LUE and LLE strength 5/5. Patient is unable to move her right side secondary to previous CVA. Skin: Warm, dry, intact with normal color Neuro: CN 2-12 intact. Strength 5/5 left side. Discharge Plan Plan Patient Disposition: [place] Skilled [facility] [place] ([place]) Patient condition on transfer: Stable Care Plan Goals: * Follow-up with PCP within 1-2 weeks of discharge. * Recommended increased fluid intake daily, continue with bowel rest to maintain regular bowel movements. * Recommended follow-up with PCP regarding glycemic control. * Continue using INSULIN GLARGINE 20 units HS (NEW). * Continue on INSULIN sliding scale protocol (NEW). * Continue using METFORMIN 500 mg BID (NEW). * Continue using CEPHALEXIN 500 mg twice daily for 5 more days (NEW). * Continue taking medications as prescribed below. * Return to Emergency Room if symptoms persist, worsen, or new symptoms develop. Prescriptions/Referrals Prescriptions/Med Rec: New metformin 500 mg tablet 500 mg PO BID Qty: 60 0RF insulin glargine 100 unit/mL solution 20 unit subcut QPM Qty: 10 0RF cephalexin 500 mg capsule 500 mg PO BID 5 Days Qty: 10 0RF insulin lispro [Admelog SoloStar U-100 Insulin] 100 unit/mL insulin pen 1 sliding scale dose subcut USEASDIRECTD Qty: 15 0RF Continued diphenhydramine HCl [Benadryl] 25 mg capsule 25 mg PO QHS PRN escitalopram oxalate [Lexapro] 10 mg tablet 10 mg PO QDAY bisacodyl [Dulcolax (bisacodyl)] 10 mg suppository 10 mg RI QDAY PRN Fleet Enema 19-7 gram/118 mL enema 118 ml RI QDAY PRN magnesium hydroxide [Milk Of Magnesia Concentrated] 2,400 mg/10 mL suspension 10 ml PO QHS PRN ascorbic acid (vitamin C) 500 mg tablet 500 mg PO QDAY atorvastatin 20 mg tablet 20 mg PO QPM Qty: 30 0RF escitalopram oxalate 10 mg Tablet 10 mg PO HS Qty: 30 0RF Discontinued atorvastatin 20 mg tablet 20 mg PO QDAY Referrals: No Primary/Family,Physician [Primary Care Provider] - Patient/Caregiver Discharge Instructions Education Materials: Small Bowel Obstruction, Urinary Tract Infections in Women, How the Colon Works Print Language: Lao Stand Alone Forms: [facility] Award Info., Patient Portal Info Letter Discharge Order Discharge Orders: Discharge (Routine); Ordered 05/10/25 Ordered By: Darron Law Quality Discharge Quality Measures VTE prophylaxis (SCD) Attestestation MD Attestation I have discussed and was present for the essential components of the discharge history, physical examination, diagnosis, and discharge treatment plan with the resident. I agree with the patient's discharge care as documented by the resident and amended herein by me. Shalom Pinedo DO. Patient significantly improved since day of admission with SBO. Small bowel series demonstrated incomplete obstruction, the patient tolerated p.o. diet without issue and has had multiple bowel movements since admission. Patient was also treated for UTI with ceftriaxone and will be discharged with a short course of Keflex. Due to the patient's type 2 diabetes which is out of control with an A1c of greater than 13, she will continue her metformin and we will add insulin glargine 20 units at bedtime onto her regimen however her primary care should consider a basal bolus regimen if the patient is able or other medication such as a GLP-1 RA. Recommend following up with primary care physician within 1 week of discharge The patient understood all discharge instructions, all questions were answered satisfactorily. The patient was instructed to return to the Emergency Department is symptoms worsened or persisted. Although this document has been carefully reviewed, there may still be some phonetic and other typographical errors. These errors are purely grammatical due to imperfections in the software program and should not be construed in any way to compromise the substance of the patient's medical care during this visit.
[2025-05-10 16:00] VITALS: BP 145/75; PULSE 80; PULSE 81; RESP 18; TEMP 36.1; O2SAT 97
--- NOTE | 2025-05-10 16:02 | PC.NURSE ---
RN called [facility] to give report at 1600. pt is currently on 2.5 L of oxygen sat 94%. vs stable at this time. ETA for transportation to pick pt up is 1630.
== END 2025-05-10 16:59 | disposition skilled nursing facility (03) | DRG 389 ==
LOC: SERX 11:21 → SERHOLD 12:35 → S3SX 16:32
PROVIDERS: Admitting Provider Student in an Organized Health Care Education/Training Program; Emergency Provider Emergency Medicine; Visit Provider Student in an Organized Health Care Education/Training Program
DX: K56.600 Partial intestinal obstruction, unspecified as to cause (principal); E87.1 Hypo-osmolality and hyponatremia; E87.20 Acidosis, unspecified; I69.351 Hemiplegia and hemiparesis following cerebral infarction affecting right dominant side; N39.0 Urinary tract infection, site not specified; I10 Essential (primary) hypertension; E78.5 Hyperlipidemia, unspecified; Z85.028 Personal history of other malignant neoplasm of stomach; Z86.718 Personal history of other venous thrombosis and embolism; Z87.891 Personal history of nicotine dependence; E11.65 Type 2 diabetes mellitus with hyperglycemia; E86.0 Dehydration; Z79.01 Long term (current) use of anticoagulants; Z90.710 Acquired absence of both cervix and uterus; Z79.4 Long term (current) use of insulin; F15.90 Other stimulant use, unspecified, uncomplicated
CPT/HCPCS: 36415; 71045; 74018; 74177; 74250; 80053; 80061; 81001; 83036; 83605; 83690; 83735; 84100; 84145; 84443; 84484; 85025; 85610; 85730; 87040; 87081; 87086; 87811; 93005; 93225; 96361; 96365; 99284; A4649; J0696; J1815; J7030; J7120; Q9963; Q9967; A9270